=== PATIENT | male | born 1985 | race Caucasian/White ===

== ENCOUNTER 2016-03-30 13:01 | Emergency (ER) ==
[2016-03-30 13:11] VITALS: BP 140/79
--- NOTE | 2016-03-30 14:39 | PROVIDER DOCUMENTATION ---
HPI-EENT General <Sondra HooksGina - Last Filed: 03/30/16 14:39> - General Source: patient - History of Present Illness-EE General [facility] Location: reports: eye (R) Quality of Pain: reports: none Severity: reports: moderate Onset/Duration: reports: 3 days ago Timing: reports: still present Prearrival Treatment: Initiated no prearrival treatment Locality of Occurance: Home Similar Symptoms Previously?: No Recently seen or treated by another doctor?: No <Amando Fernandez - Last Filed: 03/30/16 15:17> - General Chief Complaint: Eye Complaint Stated Complaint: BLURRY VISION Time Seen by Provider: 03/30/16 14:35 Allergies/Adverse Reactions: Patient Allergies Allergy/AdvReac Type Severity Reaction Status Date / Time No Known Allergies Allergy Verified 11/16/15 13:56 - History of Present Illness-[facility] General Nature of Presenting Problem: Reports to er with cc of right eye blurry vision x 3 days. 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 Also reports suppose to wear glasses but doesnt. Pt reports its only blurry far off not near sighted. Denies any injuries,syncope,chemical exposure. (Amando Fernandez) Review of Systems - Adult - REVIEW OF SYSTEMS - ADULT Constitutional: denies: chills, fever, fatique Eyes: reports: see HPI, blurred vision. denies: discharge, dry eyes, decreased vision, double vision, eye pain, redness Ears, Nose, Mouth & Throat: denies: ear pain, sinus problem, throat pain Cardiovascular: reports: no symptoms reported Respiratory: reports: no symptoms reported Gastrointestinal: reports: no symptoms reported Genitourinary: reports: no symptoms reported Musculoskeletal: reports: no symptoms reported Integumentary: reports: no symptoms reported Neurological: reports: no symptoms reported Psychiatric: reports: no symptoms reported Endocrine: reports: no symptoms reported Hematologic/Lymphatic: reports: no symptoms reported Allergic/Immunologic: reports: no symptoms reported All Other Systems: Reviewed and Negative <Amando Fernandez - Last Filed: 03/30/16 15:17> Past History - Adult - PAST MEDICAL HISTORY-ADULT Major Childhood Illnesses: reports: denies history Cardiovascular: reports: denies history Respiratory: reports: denies history Gastrointestinal: reports: denies history Obstetrical/Gynecological: reports: denies history Genitourinary: reports: denies history Musculoskeletal: reports: denies history Neurological: reports: denies history Endocrine/Immune: reports: denies history Other Conditions: reports: denies history <Sondra Hooks - Last Filed: 03/30/16 14:39> - PAST MEDICAL HISTORY-ADULT Review of Records: reports: Nursing Assessment Review Major Childhood Illnesses: reports: denies history Cardiovascular: reports: denies history - IMMUNIZATION STATUS Childhood Immunizations: See Nurse Assessment Flu Vaccine: See Nurse Assessment - FAMILY HISTORY Family History: reviewed, not pertinent - SOCIAL HISTORY Smoking: cigarettes, greater than 1 pack/day Provider spent 3-5 mins advising pt. on dangers of tobacco.: Discussed manners to quit use, and f/u contacts for add'l counseling. Substance Use: none/never <Amando Fernandez - Last Filed: 03/30/16 15:17> Physical Exam- EENT - Physical Exam EENT Initial Vital Signs Reviewed: Yes General Appearance: appears well, alert, no apparent distress Eye Exam: right eye: normal inspection, left eye: other (lazy eye), bilateral eye: PERRL, EOMI Nasal Exam: normal inspection Throat Exam: normal mouth inspection, pharynx normal Respiratory: chest non-tender, lungs clear, normal breath sounds, no pleuratic chest pain, no respiratory distress, no accessory muscle use Cardiovascular: normal peripheral pulses, regular rate, rhythm, no edema, no gallop, no JVD, no murmur Abdominal Exam: normal bowel sounds, non tender, soft, no organomegaly, no pulsatile mass Lymphatic: no adenopathy Back Exam: normal inspection, no CVA tenderness, no vertebral tenderness Extremity: normal range of motion, non-tender, normal gait, normal inspection, no pedal edema, no calf tenderness, normal capillary refill, pelvis stable Integumentary: normal color, normal turgor, warm/dry 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 NRSG Communication Order DIRECTED Care 03/30/16 14:36 Active Vital Signs - 24 hr 03/30/16 13:04 Temperature 99 F Pulse Rate 99 H Respiratory 18 Rate Blood Pressure 140/79 O2 Sat by Pulse 100 Oximetry (Amando Fernandez) Departure <Sondra Hooks - Last Filed: 03/30/16 14:39> - Departure Time of Disposition Order: 15:16 Certified Medical Emergency: Emergent <Amando Fernandez - Last Filed: 03/30/16 15:17> - Departure DIAGNOSIS: Blurry vision, left eye Disposition: HOME 01 Condition: Stable Additional Instructions: Follow up with Opthamologist ED Follow Up Instructions: You have been treated by a care provider in the Emergency Department. These instructions are being provided to you so you can have an understanding of how to care for yourself upon discharge. Upon discharge from the Emergency Department, you are responsible for making arrangements for follow-up care by a physician of your choice. Take all prescribed medications as directed. Return to the Emergency Department immediately for any new or worsening symptoms. You may call the Physician Referral phone number at [phone] to obtain a list of Physicians who are taking new patients. Referrals: None,PCP [Primary Care Provider] - Juanis Sampson MD [STAFF PHYSICIAN] - Attestation - Physician/ Mid-level Attestation Patient care was provided by Mid-level provider (OBSTETRIC ASSISTANT/PA):: Yes Mid-level provider:: Sondra Hooks Mid-level documentation review:: The Mid-level provider documentation, treatment plan and medical decision making was reviewed by the physician who agrees with all treatment and medical decision making by the P. <Sondra Hooks - Last Filed: 03/30/16 14:39> - Scribe Verification/Attestation Scribe:: Amando Fernandez Acting as Scribe for:: Alfa Cobb Scribe documention review:: This chart was documented by a scribe and accurately reflects the service the provider performed and the decisions made by the provider. - Physician/ Mid-level Attestation Patient care was provided by Mid-level provider (OBSTETRIC ASSISTANT/PA):: Yes Mid-level provider:: Sondra Hooks Mid-level documentation review:: The Mid-level provider documentation, treatment plan and medical decision making was reviewed by the physician who agrees with all treatment and medical decision making by the MLP. The physician spent face to face time with patient:: Yes <Amando Fernandez - Last Filed: 03/30/16 15:17> Physician Attestation
== END 2016-03-30 15:56 | disposition home or self-care (01) ==
LOC: P.ED 13:01
DX: H53.8 Other visual disturbances (principal); F17.210 Nicotine dependence, cigarettes, uncomplicated; Z71.6 Tobacco abuse counseling
CPT/HCPCS: 99282